=== PATIENT | female | born 1990 | race Caucasian/White ===

== ENCOUNTER 2025-01-16 05:29 | Inpatient (IN) | payer OTHER ==
[~2025-01-16 05:29] MED LIST: Sodium Chloride 0.9% 10 ML Syringe FLUSH PRN
[2025-01-16] MEDS ORDERED: Lactated Ringers 1,000 ML IV SCH ×2 (05:30→06:30)
[2025-01-16] MEDS ORDERED: Oxytocin/0.9 % Sodium Chloride 30 UNIT/500 ML BAG IV SCH (05:30)
[2025-01-16 06:16] LABS: BASOPHILS ABSOLUTE AUTO 0.0 K/mm3 (0.0-0.2); BASOPHILS PERCENT AUTO 0.4 % (0.0-1.0); EOSINOPHILS ABSOLUTE AUTO 0.0 K/mm3 (0.0-0.4); EOSINOPHILS PERCENT AUTO 0.3 % (0.0-6.0); IMMATURE GRAN ABSOLUTE AUTO 0.06 K/mm3 (0.00-0.05); IMMATURE GRAN PERCENT AUTO 0.6 % (0.0-0.4); LYMPHOCYTES ABSOLUTE AUTO 2.0 K/mm3 (1.0-4.8); LYMPHOCYTES PERCENT AUTO 21.1 % (24.0-44.0); MEAN PLATELET VOLUME 9.9 fl (9.4-12.3); MONOCYTES ABSOLUTE AUTO 0.6 K/mm3 (0.0-0.8); MONOCYTES PERCENT AUTO 6.0 % (0.0-8.0); NEUTROPHILS ABSOLUTE AUTO 6.9 K/mm3 (1.8-7.7); NEUTROPHILS PERCENT AUTO 71.6 % (41.0-71.0); NRBC ABSOLUTE 0.00 (0.00-0.02); NRBC PERCENT 0.0 % (0.0-0.2); PLATELET COUNT,PLT 158 K/mm3 (150-400); RED BLOOD CELL COUNT 3.80 M/mm3 (4.10-5.30); WHITE BLOOD CELL COUNT,WBC 9.59 K/mm3 (3.9-11.3)
[2025-01-16] MEDS: Lactated Ringers 1,000 ML IV SCH (06:20)
[2025-01-16] MEDS ORDERED: Morphine PF 10 MG/10 ML SDV ONE (07:00)
[2025-01-16] MEDS ORDERED: Ketorolac 30 MG/ML SDV ONE (07:01)
[2025-01-16] MEDS: Citric Acid/Sodium Citrate Solution 30 ML Cup PO ONE ×2 (07:10→07:34)
[2025-01-16] MEDS: Sodium Chloride 0.9% 10 ML Syringe FLUSH SCH ×2 (07:34→11:15)
[2025-01-16] MEDS ORDERED: ePHEDrine 50 MG/ML SDV ONE (07:52)
[2025-01-16] MEDS ORDERED: Lactated Ringers 1,000 ML ONE (07:55)
[2025-01-16] MEDS ORDERED: Oxytocin/0.9 % Sodium Chloride 30 UNIT/500 ML BAG IV ONE (08:15)
[2025-01-16] MEDS ORDERED: fentaNYL 100 MCG/2 ML SDV IVPUSH PRN (08:44)
[2025-01-16] MEDS ORDERED: Ondansetron 4 MG/2 ML SDV IVPUSH PRN (08:44)
[2025-01-16] MEDS ORDERED: Naloxone 0.4 MG/ML SDV IVPUSH PRN (09:52)
[2025-01-16] MEDS ORDERED: ePHEDrine 50 MG/ML SDV IVPUSH PRN (09:52)
[2025-01-16] MEDS ORDERED: Sodium Chloride 0.9% 10 ML Syringe FLUSH PRN (09:52)
[2025-01-16] MEDS ORDERED: diphenhydrAMINE 50 MG/ML SDV IVPUSH PRN (09:52)
[2025-01-16] MEDS: Ketorolac 30 MG/ML SDV IVPUSH SCH (14:12)
[2025-01-17] MEDS: Ketorolac 30 MG/ML SDV IVPUSH SCH (06:52)
[2025-01-17 07:09] LABS: MEAN PLATELET VOLUME 10.0 fl (9.4-12.3); NRBC ABSOLUTE 0.00 (0.00-0.02); NRBC PERCENT 0.0 % (0.0-0.2); PLATELET COUNT,PLT 141 K/mm3 (150-400); RED BLOOD CELL COUNT 3.20 M/mm3 (4.10-5.30); WHITE BLOOD CELL COUNT,WBC 9.51 K/mm3 (3.9-11.3)
[2025-01-17] MEDS ORDERED: Magnesium Hydroxide 400 MG/5 ML Susp 30 ML Cup PO ONE (23:25)
[2025-01-18] MEDS: Aluminum Hydroxide/Magnesium Hydroxide/Simethicone Susp 30 ML Cup PO ONE (00:21)
[2025-01-18] MEDS: Triamcinolone Acetonide 0.1% Crm 15 GM Tube TOP PRN (09:16)
== END 2025-01-18 10:18 | disposition home or self-care (01) | DRG 788 ==
LOC: JD.OB 05:29
PROVIDERS: ADMIT Obstetrics & Gynecology; ATTEND Obstetrics & Gynecology
PROC: 10D00Z1 Extraction of Products of Conception, Low, Open Approach (ICD-10-PCS; principal; 2025-01-16 07:30)
DX: O34.211 Maternal care for low transverse scar from previous cesarean delivery (principal); O24.424 Gestational diabetes mellitus in childbirth, insulin controlled; Z3A.36 36 weeks gestation of pregnancy; Z37.0 Single live birth; Z88.8 Allergy status to other drugs, medicaments and biological substances; Z90.49 Acquired absence of other specified parts of digestive tract; Z98.890 Other specified postprocedural states
CPT/HCPCS: 36415; 59025; 82947; 85025; 85027; 86592; 86850; 86900; 86901; A9270-GY; J0665; J0690; J1885; J2274; J2765; J3490; J7120; J7121; J7999